=== PATIENT | female | born 2000 | race Caucasian/White ===

== ENCOUNTER → 2019-06-13 17:02 | Outpatient (CLI) | payer OTHER, SELFPAY ==
[2019-06-16 11:24] LABS: Neisseria gonorrhoeae, NAA Negative (Negative)
== END ==
PROVIDERS: Visit Provider Nurse Practitioner Obstetrics & Gynecology
DX: Z72.51 High risk heterosexual behavior (principal)
CPT/HCPCS: 87491; 87591

== ENCOUNTER → 2019-06-21 09:22 | Outpatient (CLI) | payer OTHER, SELFPAY ==
--- NOTE | 2019-06-21 09:22 | US_ITS ---
PROCEDURE: US TRANSVAGINAL CLINICAL INDICATION: pelvic pain COMPARISON: No exams were available for comparison FINDINGS: UTERUS: 8cm x 5cmx 3cm with a combined endometrial thickness of 6.4mm LEFT OVARY: [id number] with a volume of 4ml. RIGHT OVARY: [id number] with a volume of 10.5ml. There is a 2 cm right ovarian cyst and small bilateral ovarian follicles. Bilateral ovarian blood flow is present IMPRESSION: 2 cm right ovarian cyst otherwise negative pelvic ultrasound Dictated by: Louie Licea MD 06/21/2019 12:58 Electronically signed by Louie Licea MD in [place] 06/21/2019 12:58
== END ==
PROVIDERS: PCP Pediatrics; Visit Provider Nurse Practitioner Obstetrics & Gynecology
DX: R10.2 Pelvic and perineal pain (principal)
CPT/HCPCS: 76830